=== PATIENT | male | born 1940 | race Caucasian/White ===

== ENCOUNTER 2016-10-31 07:32 | Emergency (ER) | payer MEDICARE, BC ==
[2016-10-31 07:45] VITALS: BP 134/66
[2016-10-31] MEDS ORDERED: Sodium Chloride 0.9% 10 ML Syringe FLUSH PRN (08:07)
--- NOTE | 2016-10-31 08:09 | EDM.PDOC ---
ED HPI GENERAL MEDICAL PROBLEM - General Chief Complaint: Genitourinary Problem Stated Complaint: [id number] PASSING BLOOD DIZZY Time Seen by Provider: 10/31/16 07:50 Source of Information: Reports: Patient History Limitations: Reports: No Limitations - History of Present Illness INITIAL COMMENTS - FREE TEXT/NARRATIVE: 76 yo male presents with c/o dizzy for the past few months and hematuria the past few days. States that the dizziness is intermittent. 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 Originally thought that blood in urine was due to "eating beets" but now it has continued and is bright red. Denies pain or lightheadedness. Onset: Unknown/Unsure Duration: Getting Worse Location: Reports: Head Improves with: Reports: None Worsens with: Reports: Movement Associated Symptoms: Reports: No Other Symptoms - Related Data Allergies Allergy/AdvReac Type Severity Reaction Status Date / Time Sulfa (Sulfonamide Allergy Cannot Verified 10/31/16 08:04 Antibiotics) Remember Home Meds: Home Meds Brimonidine/Timolol [Combigan 0.2%/0.5% Ophth Soln] 5 bottle .ROUTE DAILY [History] Chlorthalidone [Chlorthalidone] 25 mg PO DAILY 03/17/14 [History] Lisinopril [Prinivil] 20 mg PO DAILY 03/17/14 [History] Metoprolol Tartrate 25 mg PO BID 03/17/14 [History] Warfarin [Coumadin] 2 mg PO DAILY 03/17/14 [History] atorvaSTATin [Lipitor] 20 mg PO BEDTIME 03/17/14 [History] Aspirin 325 mg PO DAILY 08/01/15 [History] Digoxin [Digoxin] 125 mcg PO DAILY 10/31/16 [History] Furosemide [Furosemide] 20 mg PO DAILY 10/31/16 [History] Omeprazole [Omeprazole] 20 mg pe PO BID 10/31/16 [History] Potassium Chloride 20 meq PO DAILY 10/31/16 [History] Past Medical History HEENT History: Reports: Glaucoma Other HEENT History: eyelids done Cardiovascular History: Reports: Afib, CAD, High Cholesterol, Hypertension, [place], PVD, Stents Respiratory History: Reports: None Gastrointestinal History: Reports: None Genitourinary History: Reports: None Musculoskeletal History: Reports: Fracture Neurological History: Reports: None Psychiatric History: Reports: None Endocrine/Metabolic History: Reports: None Hematologic History: Reports: None Immunologic History: Reports: None Oncologic (Cancer) History: Reports: None Dermatologic History: Reports: None - Infectious Disease History Infectious Disease History: Reports: Measles - Past Surgical History Cardiovascular Surgical History: Reports: Coronary Artery Bypass Musculoskeletal Surgical History: Reports: Hip Replacement Oncologic Surgical History: Reports: None Social & Family History - Family History Family Medical History: Noncontributory - Tobacco Use Smoking Status *Q: Former Smoker Used Tobacco, but Quit: Yes Month Tobacco Last Used: 25 years ago Second Hand Smoke Exposure: No - Caffeine Use Caffeine Use: Reports: Soda - Alcohol Use Days Per Week of Alcohol Use: 4 Number of Drinks Per Day: 2 Total Drinks Per Week: 8 - Recreational Drug Use Recreational Drug Use: No - Living Situation & Occupation Living situation: Reports: Alone Occupation: Retired ED ROS GENERAL - Review of Systems Review Of Systems: See Below : Reports: Hematuria Neurological: Reports: Dizziness ED EXAM, NEURO - Physical Exam Exam: See Below Exam Limited By: No Limitations General Appearance: Alert, WD/WN, No Apparent Distress Eye Exam: Bilateral Eye: EOMI, Normal Inspection, PERRL Ears: Normal External Exam, Normal Canal, Hearing Grossly Normal, Normal TMs Nose: Normal Inspection, Normal Mucosa, No Blood Throat/Mouth: Normal Inspection, Normal Lips, Normal Teeth, Normal Gums, Normal Oropharynx, Normal Voice, No Airway Compromise Head Exam: Atraumatic, Normocephalic Neck: Normal Inspection, Supple, Non-Tender, Full Range of Motion Respiratory/Chest: No Respiratory Distress, Lungs Clear, Normal Breath Sounds, No Accessory Muscle Use, Chest Non-Tender Cardiovascular: Normal Peripheral Pulses, Regular Rate, Rhythm, No Edema, No Gallop, No JVD, No Murmur, No Rub GI/Abdominal: Normal Bowel Sounds, Soft, Non-Tender, No Organomegaly, No Distention, No Abnormal Bruit, No Mass, Other (Firm mass in RUQ due to defibrillator ) Neurological: Alert, Normal Mood/Affect, Normal Dorsiflexion, CN II-XII Intact, Normal Plantar Flexion, Normal Gait, No Motor/Sensory Deficits, Oriented x 3 Skin Exam: Warm, Dry, Intact, Normal Color, No Rash Course - Vital Signs Last Recorded V/S: Last Vital Signs Temp 97.2 F 10/31/16 07:41 Pulse 61 10/31/16 07:41 Resp 20 10/31/16 07:41 BP 134/66 10/31/16 07:41 Pulse Ox 98 10/31/16 07:41 - Orders/Labs/Meds Orders: Active Orders 24 hr Category Date Time Status EKG Documentation Completion [RC] STAT Care 10/31/16 08:07 Active CULTURE URINE [RM] Stat Lab 10/31/16 08:40 Received Sodium Chloride 0.9% [Saline Flush] Med 10/31/16 08:07 Active 10 ml FLUSH ASDIRECTED PRN Saline Lock Insert [OM.PC] Stat Oth 10/31/16 08:07 Ordered Medication Orders Sodium Chloride (Saline Flush) 10 ml FLUSH ASDIRECTED PRN PRN Reason: Keep Vein Open Last Admin: 10/31/16 10:34 Dose: 10 ml Labs: Laboratory Tests 10/31/16 10/31/16 10/31/16 Range/Units 08:20 08:20 08:20 WBC 9.6 (5.0-10.0) 10^3/uL RBC 4.54 L (4.6-6.2) 10^6/uL Hgb 15.5 (14.0-18.0) g/dL Hct 44.9 (40.0-54.0) % MCV 98.9 (80-100) fL MCH 34.1 H (27.0-34.0) pg MCHC 34.5 (33.0-35.0) g/dL Plt Count 165 (150-450) 10^3/uL Neut % (Auto) 73.9 (42.2-75.2) % Lymph % (Auto) 15.6 L (20.5-50.1) % [place] % (Auto) 9.8 H (2-8) % Eos % (Auto) 0.5 L (1.0-3.0) % Baso % (Auto) 0.2 (0.0-1.0) % PT 18.5 H (9.0-12.0) SEC INR 1.8 H (0.9-1.2) Sodium 133 L (135-145) mmol/L Potassium 4.1 (3.6-5.0) mmol/L Chloride 96 L (101-111) mmol/L Carbon Dioxide 26.0 (21.0-31.0) mmol/L Anion Gap 15.1 BUN 13 (7-18) mg/dL Creatinine 0.9 (0.6-1.3) mg/dL Est Cr Clr Drug Dosing 72.10 mL/min Estimated GFR (MDRD) > 60 Glucose 82 (74-105) mg/dL Calcium 8.9 (8.4-10.2) mg/dl Phosphorus 3.1 (2.5-4.6) mg/dL Magnesium 1.9 (1.8-2.5) mg/dL Creatine Kinase (26-174) IU/L Creatine Kinase Index (0-2.4) % CK-MB (CK-2) (0.4-4.7) ng/mL Troponin I < 0.02 (0.00-0.02) ng/ml Urine Color (YELLOW) Urine Appearance (CLEAR) Urine pH (5.0-9.0) Ur Specific [place] (1.005-1.030) Urine Protein (NEGATIVE) Urine Glucose (UA) (NEGATIVE) Urine Ketones (NEGATIVE) Urine Occult Blood (NEGATIVE) Urine Nitrite (NEGATIVE) Urine Bilirubin (NEGATIVE) Urine Urobilinogen (0.2-1.0) mg/dL Ur Leukocyte Esterase (NEGATIVE) Urine RBC /HPF Urine WBC (0-5/HPF) /HPF Ur Epithelial Cells /HPF Urine Bacteria (0-FEW/HPF) /HPF Urine Mucus /LPF 10/31/16 10/31/16 Range/Units 08:20 08:40 WBC (5.0-10.0) 10^3/uL RBC (4.6-6.2) 10^6/uL Hgb (14.0-18.0) g/dL Hct (40.0-54.0) % MCV (80-100) fL MCH (27.0-34.0) pg MCHC (33.0-35.0) g/dL Plt Count (150-450) 10^3/uL Neut % (Auto) (42.2-75.2) % Lymph % (Auto) (20.5-50.1) % [place] % (Auto) (2-8) % Eos % (Auto) (1.0-3.0) % Baso % (Auto) (0.0-1.0) % PT (9.0-12.0) SEC INR (0.9-1.2) Sodium (135-145) mmol/L Potassium (3.6-5.0) mmol/L Chloride (101-111) mmol/L Carbon Dioxide (21.0-31.0) mmol/L Anion Gap BUN (7-18) mg/dL Creatinine (0.6-1.3) mg/dL Est Cr Clr Drug Dosing mL/min Estimated GFR (MDRD) Glucose (74-105) mg/dL Calcium (8.4-10.2) mg/dl Phosphorus (2.5-4.6) mg/dL Magnesium (1.8-2.5) mg/dL Creatine Kinase 41 (26-174) IU/L Creatine Kinase Index 2.9 H (0-2.4) % CK-MB (CK-2) 1.20 (0.4-4.7) ng/mL Troponin I (0.00-0.02) ng/ml Urine Color Straw (YELLOW) Urine Appearance Turbid (CLEAR) Urine pH 5.5 (5.0-9.0) Ur Specific [place] 1.020 (1.005-1.030) Urine Protein 30 H (NEGATIVE) Urine Glucose (UA) Negative (NEGATIVE) Urine Ketones 40 H (NEGATIVE) Urine Occult Blood Moderate H (NEGATIVE) Urine Nitrite Positive H (NEGATIVE) Urine Bilirubin Small H (NEGATIVE) Urine Urobilinogen 4.0 H (0.2-1.0) mg/dL Ur Leukocyte Esterase Moderate H (NEGATIVE) Urine RBC Semi-packed H /HPF Urine WBC Semi-packed H (0-5/HPF) /HPF Ur Epithelial Cells Few /HPF Urine Bacteria Many H (0-FEW/HPF) /HPF Urine Mucus Few H /LPF Meds: Medications Generic Name Dose Route Start Last Admin Trade Name Freq PRN Reason Stop Dose Admin Sodium Chloride 10 ml 10/31/16 08:07 10/31/16 10:34 Saline Flush FLUSH 10 ml ASDIRECTED PRN Administration Keep Vein Open Discontinued Medications Generic Name Dose Route Start Last Admin Trade Name Freq PRN Reason Stop Dose Admin Ceftriaxone Sodium 1 gm/ 50 mls @ 100 mls/hr 10/31/16 09:38 10/31/16 10:35 Sodium Chloride IV 10/31/16 10:07 100 mls/hr ONETIME ONE Administration - Re-Assessments/Exams Free Text/Narrative Re-Assessment/Exam: 10/31/16 09:57 Called [facility] and EKG sent to Dr. Juarez who reviewed and states that EKG is normal. Does not feel that pacer is malfunctioning. Will have patient follow up with migratory game bird biologist this week. Departure - Departure Time of Disposition: 11:02 Disposition: Home, Self-Care 01 Condition: Good Clinical Impression: UTI, Urinary tract infectious disease, Dizziness of unknown cause - Discharge Information Instructions: Urinary Tract Infection, Adult, [id number], Dizziness, Easy-to- Read Forms: ED Department Discharge Additional Instructions: Make sure to follow up with Dr. Garay in 2-3 days to have your coumadin levels rechecked and results of urine. Take the antibiotic for 10 days. Return for any worsening symptoms or fever. Drink plenty of fluids( water/cranberry juice) the next few days to help flush the bladder. Care Plan Goals: Cipro # 20 - My Orders Last 24 Hours: My Active Orders 10/31/16 08:07 EKG Documentation Completion [RC] STAT Sodium Chloride 0.9% [Saline Flush] 10 ml FLUSH ASDIRECTED PRN Saline Lock Insert [OM.PC] Stat 10/31/16 08:40 CULTURE URINE [RM] Stat - Assessment/Plan Last 24 Hours: My Active Orders 10/31/16 08:07 EKG Documentation Completion [RC] STAT Sodium Chloride 0.9% [Saline Flush] 10 ml FLUSH ASDIRECTED PRN Saline Lock Insert [OM.PC] Stat 10/31/16 08:40 CULTURE URINE [RM] Stat
[2016-10-31 08:47] LABS: CHLORIDE,CL 96 mmol/L (101-111); SODIUM,NA 133 mmol/L (135-145)
[2016-10-31] MEDS ORDERED: cefTRIAXone 1 GM in Sodium Chloride 0.9% 50 ML IV ONE (09:38)
--- NOTE | 2016-11-01 15:01 | EKG ---
10/31/2016- ALEK OLIVEIRA - EKG, per my reading, shows narrow complex rhythm with pacer spikes at unusual location. [facility] /[id number]
== END 2016-10-31 11:45 | disposition home or self-care (01) ==
LOC: DL.ED 07:32
DX: N39.0 Urinary tract infection, site not specified (principal); I48.91 Unspecified atrial fibrillation; I25.10 Atherosclerotic heart disease of native coronary artery without angina pectoris; E78.00 Pure hypercholesterolemia, unspecified; I10 Essential (primary) hypertension; I25.2 Old myocardial infarction; Z95.1 Presence of aortocoronary bypass graft; Z87.891 Personal history of nicotine dependence; Z96.649 Presence of unspecified artificial hip joint; Z88.2 Allergy status to sulfonamides; Z79.899 Other long term (current) drug therapy; Z79.82 Long term (current) use of aspirin
CPT/HCPCS: 36415; 70450; 71010; 80048; 81001; 82550; 82553; 83735; 84100; 84484; 85025; 85610; 87086; 93005; 93010; 96365; 99284; J0696; J7050; 87088; 87186

== ENCOUNTER 2017-04-06 09:37 | Inpatient (IN) | payer MEDICARE, BC ==
--- NOTE | 2017-04-06 09:56 | EDM.PDOC ---
ED HPI GENERAL MEDICAL PROBLEM - General Chief Complaint: Gastrointestinal Problem Stated Complaint: NOT EATING, GENERALIZED WEAKNESS Time Seen by Provider: 04/06/17 09:56 Source of Information: Reports: Patient, Family, Old Records, RN, RN Notes Reviewed History Limitations: Reports: No Limitations - History of Present Illness INITIAL COMMENTS - FREE TEXT/NARRATIVE: Arrives from home by POV with c/o no appetite, 40+ lb unintended wt loss over the past 12 months. Pt states he is fatigued, weak, and food has no taste or appeal to him. He denies pain, N/V/D/C, urinary Sx's, cough, shortness of breath , or edema. He lives alone, and his family checks on him daily. The family recently got pt set up to receive 'meals on wheels' thinking that he was too tired and weak to cook for himself, but even with the delivered meals he eats very little. Pt states that he began loosing his appetite about 1 year ago, and for the last one month has worsened and has become very weak. Denies falls or injury. Onset: Gradual Duration: Constant, Getting Worse Location: Reports: Generalized Quality: Reports: Other (denies pain) Severity: Severe Improves with: Reports: None Worsens with: Reports: None Associated Symptoms: Reports: No Other Symptoms Bilateral Abdomen Pain Score (Numeric/FACES): 1 - Related Data Allergies Allergy/AdvReac Type Severity Reaction Status Date / Time Sulfa (Sulfonamide Allergy Cannot Verified 04/06/17 09:42 Antibiotics) Remember Home Meds: Home Meds Brimonidine/Timolol [Combigan 0.2%/0.5% Oph Soln] 5 bottle .ROUTE DAILY [History] Chlorthalidone [Chlorthalidone] 25 mg PO DAILY 03/17/14 [History] Lisinopril [Prinivil] 20 mg PO DAILY 03/17/14 [History] Metoprolol Tartrate 25 mg PO BID 03/17/14 [History] Warfarin [Coumadin] 2 mg PO DAILY 03/17/14 [History] atorvaSTATin [Lipitor] 20 mg PO BEDTIME 03/17/14 [History] Aspirin 325 mg PO DAILY 08/01/15 [History] Digoxin [Digoxin] 125 mcg PO DAILY 10/31/16 [History] Furosemide [Furosemide] 20 mg PO DAILY 10/31/16 [History] Omeprazole [Omeprazole] 20 mg pe PO BID 10/31/16 [History] Potassium Chloride 20 meq PO DAILY 10/31/16 [History] Past Medical History HEENT History: Reports: Glaucoma Other HEENT History: eyelids done Cardiovascular History: Reports: Afib, CAD, High Cholesterol, Hypertension, [place], PVD, Stents Respiratory History: Reports: None Gastrointestinal History: Reports: None Genitourinary History: Reports: None Musculoskeletal History: Reports: Fracture Neurological History: Reports: None Psychiatric History: Reports: None Endocrine/Metabolic History: Reports: None Hematologic History: Reports: None Immunologic History: Reports: None Oncologic (Cancer) History: Reports: None Dermatologic History: Reports: None - Infectious Disease History Infectious Disease History: Reports: Measles - Past Surgical History Cardiovascular Surgical History: Reports: Coronary Artery Bypass Musculoskeletal Surgical History: Reports: Hip Replacement Oncologic Surgical History: Reports: None Social & Family History - Family History Family Medical History: Noncontributory - Tobacco Use Smoking Status *Q: Former Smoker Used Tobacco, but Quit: Yes Month Tobacco Last Used: 25 years ago Second Hand Smoke Exposure: No - Caffeine Use Caffeine Use: Reports: Soda - Alcohol Use Days Per Week of Alcohol Use: 4 Number of Drinks Per Day: 2 Total Drinks Per Week: 8 - Recreational Drug Use Recreational Drug Use: No - Living Situation & Occupation Living situation: Reports: Alone Occupation: Retired ED ROS GENERAL - Review of Systems Review Of Systems: ROS reveals no pertinent complaints other than HPI. ED EXAM, GI/ABD - Physical Exam Exam: See Below Exam Limited By: No Limitations General Appearance: Alert, No Apparent Distress, Thin, Other (frail, elderly, poorly kept, chronically appearing male) Nose: Normal Inspection Throat/Mouth: Normal Lips, Normal Oropharynx, Normal Voice, No Airway Compromise , Other (dry oral membranes) Head: Atraumatic, Normocephalic Neck: Normal Inspection, Supple, Non-Tender, Full Range of Motion. No: Lymphadenopathy (L), Lymphadenopathy (R) Respiratory/Chest: No Respiratory Distress, Lungs Clear, No Accessory Muscle Use , Chest Non-Tender, Decreased Breath Sounds Cardiovascular: Regular Rate, Rhythm, No Edema, No JVD GI/Abdominal Exam: Soft, Non-Tender, No Distention, No Abnormal Bruit, Pelvis Stable, Abnormal Bowel Sounds (hypoactive), Other (LUQ I.C.D. palpable). No: Guarding, Rigid, Rebound (Male) Exam: Deferred Rectal (Males) Exam: Deferred Back Exam: Normal Inspection. No: CVA Tenderness (L), CVA Tenderness (R) Extremities: Normal Range of Motion, Non-Tender, No Pedal Edema, Normal Capillary Refill, Other (very thin lower extremities with generalized muscle wasting) Neurological: Alert, Oriented, Normal Cognition, No Motor/Sensory Deficits, Other (generalized weakness) Psychiatric: Normal Affect, Normal Mood Skin Exam: Warm, Dry, Intact, Normal Color, No Rash Course - Vital Signs Last Recorded V/S: Last Vital Signs Temp 36.6 C 04/06/17 09:46 Pulse 66 04/06/17 09:46 Resp 14 04/06/17 09:46 BP 116/62 04/06/17 09:46 Pulse Ox 95 04/06/17 09:46 - Orders/Labs/Meds Orders: Active Orders 24 hr Category Date Time Status Peripheral IV Care [RC] . DIRECTED Care 04/06/17 10:07 Active Sodium Chloride 0.9% [Saline Flush] Med 04/06/17 10:07 Active 10 ml FLUSH ASDIRECTED PRN Peripheral IV Insertion Adult [OM.PC] Stat Oth 04/06/17 10:06 Ordered Medication Orders Sodium Chloride (Saline Flush) 10 ml FLUSH ASDIRECTED PRN PRN Reason: Keep Vein Open Last Admin: 04/06/17 10:15 Dose: 10 ml Labs: Laboratory Tests 04/06/17 04/06/17 04/06/17 Range/Units 10:12 10:12 10:12 WBC 13.7 H (5.0-10.0) 10^3/uL RBC 3.89 L (4.6-6.2) 10^6/uL Hgb 11.4 L D (14.0-18.0) g/dL Hct 35.2 L (40.0-54.0) % MCV 90.5 D (80-100) fL MCH 29.3 (27.0-34.0) pg MCHC 32.4 L (33.0-35.0) g/dL Plt Count 279 D (150-450) 10^3/uL Neut % (Auto) 76.3 H (42.2-75.2) % Lymph % (Auto) 12.3 L (20.5-50.1) % [place] % (Auto) 11.2 H (2-8) % Eos % (Auto) 0.1 L (1.0-3.0) % Baso % (Auto) 0.1 (0.0-1.0) % Add Manual Diff Yes Neutrophils % (Manual) 74 (42-75) % Band Neutrophils % 4 % Lymphocytes % (Manual) 12 L (20-50) % Monocytes % (Manual) 9 H (2-8) % Eosinophils % (Manual) 1 (1-3) % PT 26.9 H D (9.0-12.0) SEC INR 2.7 H (0.9-1.2) Sodium 132 L (135-145) mmol/L Potassium 3.7 (3.6-5.0) mmol/L Chloride 96 L (101-111) mmol/L Carbon Dioxide 27.0 (21.0-31.0) mmol/L Anion Gap 12.7 BUN 16 (7-18) mg/dL Creatinine 0.8 (0.6-1.3) mg/dL Est Cr Clr Drug Dosing 75.60 mL/min Estimated GFR (MDRD) > 60 BUN/Creatinine Ratio 20.00 Glucose 99 (74-105) mg/dL Calcium 8.4 (8.4-10.2) mg/dl Magnesium 1.6 L (1.8-2.5) mg/dL Total Bilirubin 1.3 H (0.2-1.0) mg/dL AST 45 H (10-42) IU/L ALT 19 (10-60) IU/L Alkaline Phosphatase 518 H (42-121) IU/L Lactate Dehydrogenase 399 H (91-180) IU/L Total Protein 6.8 (6.7-8.2) g/dl Albumin 2.5 L (3.2-5.5) g/dl Globulin 4.3 Albumin/Globulin Ratio 0.58 Amylase 37 (28-100) U/L Lipase 24 (22-51) U/L TSH, Ultra Sensitive (0.45-5.33) uIu/mL Urine Color (YELLOW) Urine Appearance (CLEAR) Urine pH (5.0-9.0) Ur Specific [place] (1.005-1.030) Urine Protein (NEGATIVE) Urine Glucose (UA) (NEGATIVE) Urine Ketones (NEGATIVE) Urine Occult Blood (NEGATIVE) Urine Nitrite (NEGATIVE) Urine Bilirubin (NEGATIVE) Urine Urobilinogen (0.2-1.0) mg/dL Ur Leukocyte Esterase (NEGATIVE) Urine RBC /HPF Urine WBC (0-5/HPF) /HPF Ur Epithelial Cells /HPF Amorphous Sediment (0/HPF) /HPF Urine Bacteria (0-FEW/HPF) /HPF Urine Mucus /LPF Digoxin (0-2.5) ng/ml 04/06/17 04/06/17 04/06/17 Range/Units 10:12 10:12 10:14 WBC (5.0-10.0) 10^3/uL RBC (4.6-6.2) 10^6/uL Hgb (14.0-18.0) g/dL Hct (40.0-54.0) % MCV (80-100) fL MCH (27.0-34.0) pg MCHC (33.0-35.0) g/dL Plt Count (150-450) 10^3/uL Neut % (Auto) (42.2-75.2) % Lymph % (Auto) (20.5-50.1) % [place] % (Auto) (2-8) % Eos % (Auto) (1.0-3.0) % Baso % (Auto) (0.0-1.0) % Add Manual Diff Neutrophils % (Manual) (42-75) % Band Neutrophils % % Lymphocytes % (Manual) (20-50) % Monocytes % (Manual) (2-8) % Eosinophils % (Manual) (1-3) % PT (9.0-12.0) SEC INR (0.9-1.2) Sodium (135-145) mmol/L Potassium (3.6-5.0) mmol/L Chloride (101-111) mmol/L Carbon Dioxide (21.0-31.0) mmol/L Anion Gap BUN (7-18) mg/dL Creatinine (0.6-1.3) mg/dL Est Cr Clr Drug Dosing mL/min Estimated GFR (MDRD) BUN/Creatinine Ratio Glucose (74-105) mg/dL Calcium (8.4-10.2) mg/dl Magnesium (1.8-2.5) mg/dL Total Bilirubin (0.2-1.0) mg/dL AST (10-42) IU/L ALT (10-60) IU/L Alkaline Phosphatase (42-121) IU/L Lactate Dehydrogenase (91-180) IU/L Total Protein (6.7-8.2) g/dl Albumin (3.2-5.5) g/dl Globulin Albumin/Globulin Ratio Amylase (28-100) U/L Lipase (22-51) U/L TSH, Ultra Sensitive 5.83 H (0.45-5.33) uIu/mL Urine Color Yellow (YELLOW) Urine Appearance Clear (CLEAR) Urine pH 5.5 (5.0-9.0) Ur Specific [place] 1.025 (1.005-1.030) Urine Protein 30 H (NEGATIVE) Urine Glucose (UA) Negative (NEGATIVE) Urine Ketones Negative (NEGATIVE) Urine Occult Blood Trace-lysed H (NEGATIVE) Urine Nitrite Negative (NEGATIVE) Urine Bilirubin Moderate H (NEGATIVE) Urine Urobilinogen 2.0 H (0.2-1.0) mg/dL Ur Leukocyte Esterase Negative (NEGATIVE) Urine RBC 0-5 /HPF Urine WBC 0-5 (0-5/HPF) /HPF Ur Epithelial Cells Many H /HPF Amorphous Sediment Many (0/HPF) /HPF Urine Bacteria Many H (0-FEW/HPF) /HPF Urine Mucus Many H /LPF Digoxin 0.4 (0-2.5) ng/ml Meds: Medications Generic Name Dose Route Start Last Admin Trade Name Freq PRN Reason Stop Dose Admin Sodium Chloride 10 ml 04/06/17 10:07 04/06/17 10:15 Saline Flush FLUSH 10 ml ASDIRECTED PRN Administration Keep Vein Open Discontinued Medications Generic Name Dose Route Start Last Admin Trade Name Freq PRN Reason Stop Dose Admin Sodium Chloride 1,000 mls @ 999 mls/hr 04/06/17 10:46 04/06/17 10:50 Normal Saline IV 04/06/17 11:46 999 mls/hr .BOLUS ONE Administration Iopamidol 100 ml 04/06/17 12:43 04/06/17 12:53 Isovue-300 (61%) IVPUSH 04/06/17 12:44 100 ml ONETIME ONE Administration - Radiology Interpretation Free Text/Narrative:: CT C/A/P: left thyroid calcification 11mm, small B/L pleural effusions, aortoiliac stent graft, no endo leak, diverticulosis, Rt renal cyst, cholelithiasis, prostatic hypertrophy w/chronic calcific prostatitis per Rad. report. CT Results Date: 04/06/17 Departure - Departure Time of Disposition: 13:07 (admit to Dr. Jacob) Disposition: Admitted As Inpatient 66 Condition: Poor Clinical Impression: Dehydration, Cachexia, Generalized weakness, Pleural effusion Leukocytosis, unspecified Qualifiers: Leukocytosis type: unspecified Qualified Code(s): D72.829 - Elevated white blood cell count, unspecified - Discharge Information Forms: ED Department Discharge - My Orders Last 24 Hours: My Active Orders 04/06/17 10:06 Peripheral IV Insertion Adult [OM.PC] Stat 04/06/17 10:07 Peripheral IV Care [RC] . DIRECTED Sodium Chloride 0.9% [Saline Flush] 10 ml FLUSH ASDIRECTED PRN - Assessment/Plan Last 24 Hours: My Active Orders 04/06/17 10:06 Peripheral IV Insertion Adult [OM.PC] Stat 04/06/17 10:07 Peripheral IV Care [RC] . DIRECTED Sodium Chloride 0.9% [Saline Flush] 10 ml FLUSH ASDIRECTED PRN
[2017-04-06] MEDS ORDERED: Sodium Chloride 0.9% 10 ML Syringe FLUSH PRN (10:07)
[2017-04-06 10:39] LABS: ANION GAP 12.7; CHLORIDE,CL 96 mmol/L (101-111); SODIUM,NA 132 mmol/L (135-145)
[2017-04-06] MEDS ORDERED: Sodium Chloride 0.9% 1,000 ML IV ONE (10:46)
[2017-04-06] MEDS ORDERED: Iopamidol 612 MG/ML 100 ML Bottle IVPUSH ONE (12:43)
[2017-04-06] MEDS ORDERED: Zolpidem 5 MG Tab PO PRN (14:48)
[2017-04-06] MEDS ORDERED: Acetaminophen 325 MG Tab PO PRN (14:48)
--- NOTE | 2017-04-06 14:52 | PCM.HP ---
H&P History of Present Illness - General Date of Service: 04/06/17 Admit Problem/Dx: Admission Diagnosis/Problem Admission Diagnosis/Problem Weakness Source of Information: Patient - History of Present Illness Initial Comments - Free Text/Narative: The patient is a 76-year-old gentleman who presented with weakness, poor appetite, about 40 pounds weight loss. Symptoms started about a year ago. In the meantime the patient has been followed by Dr. Garay the clinic. 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 At this point the patient opted for no further workup. The patient has been living alone, but has been increasingly weak. Has had Meals on Wheels arranged. Came into the emergency room, it was felt that the patient is too weak to return home alone. Bilateral Abdomen Pain Score (Numeric/FACES): 1 - Related Data Allergies/Adverse Reactions: Allergies Allergy/AdvReac Type Severity Reaction Status Date / Time Sulfa (Sulfonamide Allergy Cannot Verified 04/06/17 14:41 Antibiotics) Remember Home Medications: Home Meds Metoprolol Tartrate 25 mg PO BID 03/17/14 [History] atorvaSTATin [Lipitor] 20 mg PO BEDTIME 03/17/14 [History] Aspirin 325 mg PO DAILY 08/01/15 [History] Digoxin [Digoxin] 125 mcg PO DAILY 10/31/16 [History] Furosemide [Furosemide] 20 mg PO DAILY 10/31/16 [History] Omeprazole [Omeprazole] 20 mg pe PO DAILY 10/31/16 [History] Potassium Chloride 20 meq PO DAILY 10/31/16 [History] Amiodarone [Cordarone] 200 mg PO DAILY 04/06/17 [History] Latanoprost [Xalatan 0.005% Ophth Soln] 1 drop EYEBOTH BEDTIME 04/06/17 [History ] Warfarin Sodium [Jantoven] 2 mg PO ASDIRECTED 04/06/17 [History] Past Medical History HEENT History: Reports: Glaucoma Other HEENT History: eyelids done Cardiovascular History: Reports: Afib, CAD, High Cholesterol, Hypertension, PR, PVD, Stents Respiratory History: Reports: None Gastrointestinal History: Reports: None Genitourinary History: Reports: Urinary Incontinence Musculoskeletal History: Reports: Fracture Neurological History: Reports: None Psychiatric History: Reports: None Endocrine/Metabolic History: Reports: None Hematologic History: Reports: None Immunologic History: Reports: None Oncologic (Cancer) History: Reports: None Dermatologic History: Reports: None - Infectious Disease History Infectious Disease History: Reports: Measles - Past Surgical History Cardiovascular Surgical History: Reports: Coronary Artery Bypass, Pacer Musculoskeletal Surgical History: Reports: Hip Replacement Oncologic Surgical History: Reports: None Social & Family History - Family History Family Medical History: Noncontributory - Tobacco Use Smoking Status *Q: Former Smoker Used Tobacco, but Quit: Yes Month Tobacco Last Used: 25 years ago Second Hand Smoke Exposure: No - Caffeine Use Caffeine Use: Reports: Soda - Alcohol Use Days Per Week of Alcohol Use: 4 Number of Drinks Per Day: 2 Total Drinks Per Week: 8 - Recreational Drug Use Recreational Drug Use: No - Living Situation & Occupation Living situation: Reports: Alone Occupation: Retired H&P Review of Systems - Review of Systems: Review Of Systems: See Below General: Denies: Fever, Chills Pulmonary: Denies: Shortness of Breath Cardiovascular: Denies: Chest Pain Gastrointestinal: Reports: Anorexia. Denies: Abdominal Pain, Constipation, Diarrhea Genitourinary: Denies: Dysuria Musculoskeletal: Reports: Back Pain (Occasional, chronic) Psychiatric: Denies: Confusion Neurological: Reports: Dizziness. Denies: Headache, Syncope Exam - Exam Exam: See Below - Vital Signs Vital Signs: Last Vital Signs Temp 37.2 C 04/06/17 13:51 Pulse 63 04/06/17 13:51 Resp 20 04/06/17 13:51 BP 114/56 L 04/06/17 13:51 Pulse Ox 99 04/06/17 13:51 Weight: 66.587 kg - Exam General: Alert, Oriented Neck: Supple Lungs: Clear to Auscultation, Normal Respiratory Effort Cardiovascular: Regular Rate, Regular Rhythm, Systolic Murmur GI/Abdominal Exam: Normal Bowel Sounds, Soft, Non-Tender Extremities: No Pedal Edema - Patient Data Result Diagrams: 04/06/17 10:12 04/06/17 10:12 *Q Meaningful Use (ADM) - VTE *Q VTE Criteria *Q: - Stroke *Q Stroke Criteria *Q: - AMI *Q AMI Criteria *Q: - Problem List (1) Atrial fibrillation SNOMED Code(s): 80457791 ICD Code: I48.91 - UNSPECIFIED ATRIAL FIBRILLATION Status: Acute Current Visit: Yes (2) Cachexia SNOMED Code(s): 628445991 ICD Code: R64 - CACHEXIA Status: Acute Current Visit: Yes (3) Generalized weakness SNOMED Code(s): 52608106 ICD Code: R53.1 - WEAKNESS Status: Acute Current Visit: Yes (4) Leukocytosis, unspecified SNOMED Code(s): 852605973 ICD Code: D72.829 - ELEVATED WHITE BLOOD CELL COUNT, UNSPECIFIED Status: Acute Current Visit: Yes Qualifiers: Leukocytosis type: unspecified Qualified Code(s): D72.829 - Elevated white blood cell count, unspecified (5) Anticoagulant therapy SNOMED Code(s): 192514854 ICD Code: 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 Status: Acute Current Visit: No (6) HTN, Essential hypertension SNOMED Code(s): 80078221 ICD Code: I10 - ESSENTIAL (PRIMARY) HYPERTENSION Status: Chronic Current Visit: No Problem List Initiated/Reviewed/Updated: Yes Orders Last 24hrs: Active Orders 24 hr Category Date Time Status Patient Status [ADT] Routine ADT 04/06/17 14:48 Ordered Antiembolic Devices [RC] PER UNIT ROUTINE Care 04/06/17 14:50 Ordered Oxygen Therapy [RC] PRN Care 04/06/17 14:48 Ordered Up With Assistance [RC] ASDIRECTED Care 04/06/17 14:48 Ordered VTE/DVT Education [RC] PER UNIT ROUTINE Care 04/06/17 14:48 Ordered Vital Signs [RC] Q4H Care 04/06/17 14:48 Ordered OT Evaluation and Treatment [CONS] Routine Cons 04/06/17 14:50 Ordered PT Evaluation and Treatment [CONS] Routine Cons 04/06/17 14:51 Ordered Regular Diet [DIET] Diet 04/06/17 Dinner Ordered BASIC METABOLIC PANEL,BMP [CHEM] AM Lab 04/07/17 05:11 Ordered CBC WITH AUTO DIFF [HEME] AM Lab 04/07/17 05:11 Ordered PSA-EIA [REF] Routine Lab 04/06/17 14:51 Ordered Acetaminophen [Tylenol] Med 04/06/17 14:48 Ordered 650 mg PO Q4H PRN Levothyroxine Med 04/07/17 06:00 Ordered 25 mcg PO ACBREAKFAST Zolpidem [Ambien] Med 04/06/17 14:48 Ordered 5 mg PO BEDTIME PRN Antiembolic Hose [OM.PC] Per Unit Routine Oth 04/06/17 14:49 Ordered Resuscitation Status Routine Resus Stat 04/06/17 14:48 Ordered Medication Orders Acetaminophen (Tylenol) 650 mg PO Q4H PRN PRN Reason: Pain (Mild 1-3)/fever Levothyroxine Sodium (Levothyroxine) 25 mcg PO ACBREAKFAST MIL Sodium Chloride (Saline Flush) 10 ml FLUSH ASDIRECTED PRN PRN Reason: Keep Vein Open Last Admin: 04/06/17 10:15 Dose: 10 ml Zolpidem Tartrate (Ambien) 5 mg PO BEDTIME PRN PRN Reason: Sleep Assessment/Plan Comment:: Weakness Likely due to weight loss, possibly due to metastatic cancer Hold Lasix Will have physical and occupational therapy evaluation Leukocytosis UA is not compatible with urinary tract infection Will monitor, for now hold antibiotics Has a history of "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 Garay The patient was set up to follow-up with Oncology Dr. Anaya, bone biopsy was discussed but the patient declined further evaluations. I will check PSA level Elevated TSH likely hypothyroidism Start Synthroid Atrial fibrillation Continue metoprolol, digoxin, amiodarone for rate control Anticoagulation for atrial fibrillation. Coumadin will be continued Hyponatremia Mild, will follow with diet Hypertension Treat with metoprolol Coronary artery disease Treat with aspirin, metoprolol, Lipitor DVT prophylaxis with full dose anticoagulation with Coumadin
[2017-04-06] MEDS: Latanoprost 0.005% Ophth Soln 2.5 ML Bottle EYEBOTH SCH (23:15)
[2017-04-06] MEDS: atorvaSTATin 20 MG Tab PO SCH (23:16)
[2017-04-06] MEDS: Metoprolol Tartrate 25 MG Tab PO SCH (23:17)
[2017-04-07] MEDS: Omeprazole 20 MG Cap.CR PO SCH (06:30)
[2017-04-07] MEDS: Levothyroxine 25 MCG Tab PO SCH (06:30)
[2017-04-07 07:01] LABS: ANION GAP 9.1; CHLORIDE,CL 99 mmol/L (101-111); SODIUM,NA 128 mmol/L (135-145)
[2017-04-07] MEDS: Digoxin 125 MCG Tab PO SCH (08:19)
[2017-04-07] MEDS: Amiodarone 200 MG Tab PO SCH (08:19)
[2017-04-07] MEDS: Aspirin 325 MG Tab PO SCH (08:20)
[2017-04-07] MEDS: Metoprolol Tartrate 25 MG Tab PO SCH ×2 (08:20→22:13)
[2017-04-07] MEDS ORDERED: Lactulose Soln 10 GM/15 ML 30 ML UD Cup PO PRN (12:44)
--- NOTE | 2017-04-07 12:55 | PCM.PN ---
- General Info Date of Service: 04/07/17 Admission Dx/Problem (Free Text): Admission Diagnosis/Problem Admission Diagnosis/Problem Weakness, weight loss Subjective Update: Feeling stronger. Eating better. No complains of back pain. He has been using very little salt in his diet. No cough, no shortness of breath, no chest pain, no fever or chills. Functional Status: Reports: Pain Controlled - Review of Systems General: Denies: Fever Pulmonary: Denies: Shortness of Breath Cardiovascular: Denies: Chest Pain Gastrointestinal: Denies: Abdominal Pain - Patient Data Vitals - Most Recent: Last Vital Signs Temp 36.8 C 04/07/17 11:52 Pulse 70 04/07/17 11:52 Resp 20 04/07/17 11:52 BP 104/56 L 04/07/17 11:52 Pulse Ox 95 04/07/17 11:52 Weight - Most Recent: 66.587 kg I&O - Last 24 Hours: Intake & Output 04/06/17 04/07/17 04/07/17 22:59 06:59 14:59 Intake Total 400 225 Output Total 500 500 Balance 400 -275 -500 Lab Results Last 24 Hours: Laboratory Results - last 24 hr 04/07/17 04/07/17 04/07/17 Range/Units 05:57 05:57 05:57 WBC 11.0 H (5.0-10.0) 10^3/uL RBC 3.36 L (4.6-6.2) 10^6/uL Hgb 9.9 L D (14.0-18.0) g/dL Hct 30.5 L (40.0-54.0) % MCV 90.8 (80-100) fL MCH 29.5 (27.0-34.0) pg MCHC 32.5 L (33.0-35.0) g/dL Plt Count 278 (150-450) 10^3/uL Neut % (Auto) 71.9 (42.2-75.2) % Lymph % (Auto) 16.8 L (20.5-50.1) % [place] % (Auto) 11.0 H (2-8) % Eos % (Auto) 0.2 L (1.0-3.0) % Baso % (Auto) 0.1 (0.0-1.0) % PT 23.6 H (9.0-12.0) SEC INR 2.3 H (0.9-1.2) Sodium 128 L (135-145) mmol/L Potassium 3.1 L (3.6-5.0) mmol/L Chloride 99 L (101-111) mmol/L Carbon Dioxide 23.0 (21.0-31.0) mmol/L Anion Gap 9.1 BUN 16 (7-18) mg/dL Creatinine 0.6 (0.6-1.3) mg/dL Est Cr Clr Drug Dosing 98.65 mL/min Estimated GFR (MDRD) > 60 Glucose 83 (74-105) mg/dL Calcium 7.7 L (8.4-10.2) mg/dl Med Orders - Current: Current Medications Acetaminophen (Tylenol) 650 mg PO Q4H PRN PRN Reason: Pain (Mild 1-3)/fever Amiodarone HCl (Cordarone) 200 mg PO DAILY [facility] Last Admin: 04/07/17 08:19 Dose: 200 mg Aspirin (Aspirin) 325 mg PO DAILY [facility] Last Admin: 04/07/17 08:20 Dose: 325 mg Atorvastatin Calcium (Lipitor) 20 mg PO BEDTIME [facility] Last Admin: 04/06/17 23:16 Dose: 20 mg Digoxin (Lanoxin) 125 mcg PO DAILY [facility] Last Admin: 04/07/17 08:19 Dose: 125 mcg Lactulose (Cephulac) 20 gm PO Q4H PRN PRN Reason: Constipation Latanoprost (Xalatan 0.005% Ophth Soln) 0 ml EYEBOTH BEDTIME [facility] Last Admin: 04/06/17 23:15 Dose: 1 drop Levothyroxine Sodium (Levothyroxine) 25 mcg PO ACBREAKFAST [facility] Last Admin: 04/07/17 06:30 Dose: 25 mcg Metoprolol Tartrate (Lopressor) 25 mg PO BID [facility] Last Admin: 04/07/17 08:20 Dose: 25 mg Omeprazole (Omeprazole) 20 mg PO ACBRK [facility] Last Admin: 04/07/17 06:30 Dose: 20 mg Potassium Chloride (Klor-Con 10) 20 meq PO TIDMEALS [facility] Stop: 04/08/17 12:01 Senna/Docusate Sodium (Senna Plus) 1 tab PO BID [facility] Sodium Chloride (Saline Flush) 10 ml FLUSH ASDIRECTED PRN PRN Reason: Keep Vein Open Last Admin: 04/06/17 10:15 Dose: 10 ml Sodium Chloride (Sodium Chloride) 1 gm PO TID [facility] Warfarin Sodium (Pharmacy To Dose - Warfarin) 1 dose .XX ASDIRECTED MIL Warfarin Sodium (Coumadin) 1 mg PO ONETIME ONE Stop: 04/07/17 14:01 Zolpidem Tartrate (Ambien) 5 mg PO BEDTIME PRN PRN Reason: Sleep Discontinued Medications Sodium Chloride (Normal Saline) 1,000 mls @ 999 mls/hr IV .BOLUS ONE Stop: 04/06/17 11:46 Last Admin: 04/06/17 10:50 Dose: 999 mls/hr Iopamidol (Isovue-300 (61%)) 100 ml IVPUSH ONETIME ONE Stop: 04/06/17 12:44 Last Admin: 04/06/17 12:53 Dose: 100 ml Warfarin Sodium (Coumadin) 1 mg PO ONETIME ONE Stop: 04/06/17 15:31 Last Admin: 04/06/17 16:28 Dose: 1 mg - Exam General: Alert, Oriented Neck: Supple Lungs: Clear to Auscultation, Normal Respiratory Effort Cardiovascular: Regular Rate, Regular Rhythm Extremities: No Pedal Edema - Problem List & Annotations (1) Atrial fibrillation SNOMED Code(s): 09352011 Code(s): I48.91 - UNSPECIFIED ATRIAL FIBRILLATION Status: Acute Current Visit: Yes (2) Cachexia SNOMED Code(s): 125740463 Code(s): R64 - CACHEXIA Status: Acute Current Visit: Yes (3) Generalized weakness SNOMED Code(s): 22644736 Code(s): R53.1 - WEAKNESS Status: Acute Current Visit: Yes (4) Leukocytosis, unspecified SNOMED Code(s): 973537146 Code(s): D72.829 - ELEVATED WHITE BLOOD CELL COUNT, UNSPECIFIED Status: Acute Current Visit: Yes Qualifiers: Leukocytosis type: unspecified Qualified Code(s): D72.829 - Elevated white blood cell count, unspecified (5) Anticoagulant therapy SNOMED Code(s): 724245692 Code(s): 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 Status: Acute Current Visit: No (6) HTN, Essential hypertension SNOMED Code(s): 62246950 Code(s): I10 - ESSENTIAL (PRIMARY) HYPERTENSION Status: Chronic Current Visit: No (7) Hyponatremia SNOMED Code(s): 41800030 Code(s): E87.1 - HYPO-OSMOLALITY AND HYPONATREMIA Status: Acute Current Visit: Yes - Problem List Review Problem List Initiated/Reviewed/Updated: Yes - My Orders Last 24 Hours: My Active Orders 04/06/17 14:17 PSA-EIA [REF] Routine 04/06/17 14:50 OT Evaluation and Treatment [CONS] Routine 04/06/17 14:51 PT Evaluation and Treatment [CONS] Routine 04/06/17 15:15 Warfarin Pharmacy to Dose [Pharmacy to Dose - Warfarin] 1 dose .XX ASDIRECTED 04/06/17 15:28 Dietary Supplements [RC] BIDMEALS 04/06/17 21:00 Latanoprost [Xalatan 0.005% Ophth Soln] 0 ml EYEBOTH BEDTIME Metoprolol Tartrate [Lopressor] 25 mg PO BID atorvaSTATin [Lipitor] 20 mg PO BEDTIME 04/07/17 06:00 Omeprazole 20 mg PO ACBRK 04/07/17 09:00 Amiodarone [Cordarone] 200 mg PO DAILY Aspirin 325 mg PO DAILY Digoxin [Lanoxin] 125 mcg PO DAILY 04/07/17 12:44 Lactulose [Cephulac] 20 gm PO Q4H PRN 04/07/17 12:45 Docusate Sodium/Sennosides [Senna Plus] 1 tab PO BID 04/07/17 12:49 Patient Status [ADT] Routine 04/07/17 14:00 Sodium Chloride 1 gm PO TID Warfarin [Coumadin] 1 mg PO ONETIME ONE 04/07/17 18:00 Potassium Chloride [Klor-Con 10] 20 meq PO TIDMEALS 04/08/17 05:15 BASIC METABOLIC PANEL,BMP [CHEM] AM CBC WITH AUTO DIFF [HEME] AM 04/08/17 06:00 INR,PT,PROTHROMBIN TIME [COAG] DAILY 04/09/17 06:00 INR,PT,PROTHROMBIN TIME [COAG] DAILY 04/10/17 06:00 INR,PT,PROTHROMBIN TIME [COAG] DAILY 04/11/17 06:00 INR,PT,PROTHROMBIN TIME [COAG] DAILY 04/12/17 06:00 INR,PT,PROTHROMBIN TIME [COAG] DAILY 04/13/17 06:00 INR,PT,PROTHROMBIN TIME [COAG] DAILY - Plan Plan:: Weakness Likely due to weight loss, possibly due to metastatic cancer Hold Lasix Will have physical and occupational therapy evaluation Hyponatremia worsened This 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 Garay The patient was set up to follow-up with Oncology Dr. Anaya, bone biopsy was discussed but the patient declined further evaluations. Pending PSA level We again discussed the potential diagnosis of cancer with the patient with his nephew present. He is unsure if he wants to pursue any further diagnosis or treatment Elevated TSH likely hypothyroidism Started Synthroid Atrial fibrillation Continue metoprolol, digoxin, amiodarone for rate control Anticoagulation for atrial fibrillation. Coumadin will be continued Hypertension Treat with metoprolol Coronary artery disease Treat with aspirin, metoprolol, Lipitor DVT prophylaxis with full dose anticoagulation with Coumadin
[2017-04-07] MEDS: Sodium Chloride 1 GM Tab PO SCH ×2 (14:09→22:14)
[2017-04-07] MEDS: Potassium Chloride 10 MEQ Tab.ER PO SCH (17:26)
[2017-04-07] MEDS: atorvaSTATin 20 MG Tab PO SCH (22:13)
[2017-04-07] MEDS: Latanoprost 0.005% Ophth Soln 2.5 ML Bottle EYEBOTH SCH (22:15)
[2017-04-08 06:53] LABS: ANION GAP 11.7; CHLORIDE,CL 100 mmol/L (101-111); SODIUM,NA 134 mmol/L (135-145)
[2017-04-08] MEDS: Omeprazole 20 MG Cap.CR PO SCH (07:19)
[2017-04-08] MEDS: Levothyroxine 25 MCG Tab PO SCH (07:19)
[2017-04-08] MEDS: Potassium Chloride 10 MEQ Tab.ER PO SCH ×2 (08:56→11:37)
[2017-04-08] MEDS: Aspirin 325 MG Tab PO SCH (08:56)
[2017-04-08] MEDS: Metoprolol Tartrate 25 MG Tab PO SCH ×2 (08:56→21:01)
[2017-04-08] MEDS: Sodium Chloride 1 GM Tab PO SCH ×3 (08:57→21:00)
[2017-04-08] MEDS: Digoxin 125 MCG Tab PO SCH (08:57)
[2017-04-08] MEDS: Amiodarone 200 MG Tab PO SCH (08:57)
--- NOTE | 2017-04-08 11:25 | PCM.PN ---
- General Info Date of Service: 04/08/17 Admission Dx/Problem (Free Text): Admission Diagnosis/Problem Admission Diagnosis/Problem Weakness, weight loss Subjective Update: Feeling stronger. Eating better. No complains of back pain. Still, has been walking very little with walker No cough, no shortness of breath, no chest pain, no fever or chills. Functional Status: Reports: Pain Controlled - Review of Systems General: Reports: Weakness. Denies: Fever Pulmonary: Denies: Shortness of Breath Cardiovascular: Denies: Chest Pain Gastrointestinal: Denies: Abdominal Pain Neurological: Denies: Confusion - Patient Data Vitals - Most Recent: Last Vital Signs Temp 36.5 C 04/08/17 07:55 Pulse 67 04/08/17 08:56 Resp 20 04/08/17 07:55 BP 101/51 L 04/08/17 08:56 Pulse Ox 96 04/08/17 07:55 Weight - Most Recent: 66.587 kg I&O - Last 24 Hours: Intake & Output 04/07/17 04/08/17 04/08/17 22:59 06:59 14:59 Intake Total 495 200 200 Output Total 150 250 100 Balance 345 -50 100 Lab Results Last 24 Hours: Laboratory Results - last 24 hr 04/08/17 04/08/17 04/08/17 Range/Units 06:19 06:19 06:19 WBC 8.5 (5.0-10.0) 10^3/uL RBC 3.37 L (4.6-6.2) 10^6/uL Hgb 9.9 L (14.0-18.0) g/dL Hct 30.9 L (40.0-54.0) % MCV 91.7 (80-100) fL MCH 29.4 (27.0-34.0) pg MCHC 32.0 L (33.0-35.0) g/dL Plt Count 268 (150-450) 10^3/uL Neut % (Auto) 67.7 (42.2-75.2) % Lymph % (Auto) 19.9 L (20.5-50.1) % [place] % (Auto) 12.1 H (2-8) % Eos % (Auto) 0.2 L (1.0-3.0) % Baso % (Auto) 0.1 (0.0-1.0) % Add Manual Diff PT 22.6 H (9.0-12.0) SEC INR 2.2 H (0.9-1.2) Sodium 134 L (135-145) mmol/L Potassium 3.7 (3.6-5.0) mmol/L Chloride 100 L (101-111) mmol/L Carbon Dioxide 26.0 (21.0-31.0) mmol/L Anion Gap 11.7 BUN 14 (7-18) mg/dL Creatinine 0.6 (0.6-1.3) mg/dL Est Cr Clr Drug Dosing 98.65 mL/min Estimated GFR (MDRD) > 60 Glucose 83 (74-105) mg/dL Calcium 7.9 L (8.4-10.2) mg/dl Med Orders - Current: Current Medications Acetaminophen (Tylenol) 650 mg PO Q4H PRN PRN Reason: Pain (Mild 1-3)/fever Amiodarone HCl (Cordarone) 200 mg PO DAILY [facility] Last Admin: 04/08/17 08:57 Dose: 200 mg Aspirin (Aspirin) 325 mg PO DAILY [facility] Last Admin: 04/08/17 08:56 Dose: 325 mg Atorvastatin Calcium (Lipitor) 20 mg PO BEDTIME [facility] Last Admin: 04/07/17 22:13 Dose: 20 mg Digoxin (Lanoxin) 125 mcg PO DAILY [facility] Last Admin: 04/08/17 08:57 Dose: 125 mcg Lactulose (Cephulac) 20 gm PO Q4H PRN PRN Reason: Constipation Latanoprost (Xalatan 0.005% Ophth Soln) 0 ml EYEBOTH BEDTIME [facility] Last Admin: 04/07/17 22:15 Dose: 1 drop Levothyroxine Sodium (Levothyroxine) 25 mcg PO ACBREAKFAST [facility] Last Admin: 04/08/17 07:19 Dose: 25 mcg Metoprolol Tartrate (Lopressor) 25 mg PO BID [facility] Last Admin: 04/08/17 08:56 Dose: 25 mg Omeprazole (Omeprazole) 20 mg PO ACBRK [facility] Last Admin: 04/08/17 07:19 Dose: 20 mg Potassium Chloride (Klor-Con 10) 20 meq PO TIDMEALS [facility] Stop: 04/08/17 12:01 Last Admin: 04/08/17 08:56 Dose: 20 meq Senna/Docusate Sodium (Senna Plus) 1 tab PO BID [facility] Last Admin: 04/08/17 08:56 Dose: 1 tab Sodium Chloride (Saline Flush) 10 ml FLUSH ASDIRECTED PRN PRN Reason: Keep Vein Open Last Admin: 04/06/17 10:15 Dose: 10 ml Sodium Chloride (Sodium Chloride) 1 gm PO TID [facility] Last Admin: 04/08/17 08:57 Dose: 1 gm Warfarin Sodium (Pharmacy To Dose - Warfarin) 1 dose .XX ASDIRECTED [facility] Warfarin Sodium (Coumadin) 1 mg PO DAILY@1400 [facility] Stop: 04/08/17 14:01 Zolpidem Tartrate (Ambien) 5 mg PO BEDTIME PRN PRN Reason: Sleep Discontinued Medications Sodium Chloride (Normal Saline) 1,000 mls @ 999 mls/hr IV .BOLUS ONE Stop: 04/06/17 11:46 Last Admin: 04/06/17 10:50 Dose: 999 mls/hr Iopamidol (Isovue-300 (61%)) 100 ml IVPUSH ONETIME ONE Stop: 04/06/17 12:44 Last Admin: 04/06/17 12:53 Dose: 100 ml Warfarin Sodium (Coumadin) 1 mg PO ONETIME ONE Stop: 04/06/17 15:31 Last Admin: 04/06/17 16:28 Dose: 1 mg Warfarin Sodium (Coumadin) 1 mg PO ONETIME ONE Stop: 04/07/17 14:01 Last Admin: 04/07/17 14:09 Dose: 1 mg - Exam General: Alert, Oriented Neck: Supple Lungs: Clear to Auscultation, Normal Respiratory Effort Cardiovascular: Regular Rate, Regular Rhythm GI/Abdominal Exam: Normal Bowel Sounds, Soft, Non-Tender Extremities: No Pedal Edema - Problem List & Annotations (1) Atrial fibrillation SNOMED Code(s): 93794551 Code(s): I48.91 - UNSPECIFIED ATRIAL FIBRILLATION Status: Acute Current Visit: Yes (2) Cachexia SNOMED Code(s): 997018923 Code(s): R64 - CACHEXIA Status: Acute Current Visit: Yes (3) Generalized weakness SNOMED Code(s): 87447948 Code(s): R53.1 - WEAKNESS Status: Acute Current Visit: Yes (4) Leukocytosis, unspecified SNOMED Code(s): 475139431 Code(s): D72.829 - ELEVATED WHITE BLOOD CELL COUNT, UNSPECIFIED Status: Acute Current Visit: Yes Qualifiers: Leukocytosis type: unspecified Qualified Code(s): D72.829 - Elevated white blood cell count, unspecified (5) Anticoagulant therapy SNOMED Code(s): 779901514 Code(s): Z79.01 - 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 Status: Acute Current Visit: No (6) HTN, Essential hypertension SNOMED Code(s): 50681829 Code(s): I10 - ESSENTIAL (PRIMARY) HYPERTENSION Status: Chronic Current Visit: No (7) Hyponatremia SNOMED Code(s): 60836186 Code(s): E87.1 - HYPO-OSMOLALITY AND HYPONATREMIA Status: Acute Current Visit: Yes - Problem List Review Problem List Initiated/Reviewed/Updated: Yes - My Orders Last 24 Hours: My Active Orders 04/08/17 14:00 Warfarin [Coumadin] 1 mg PO DAILY@1400 - Plan Plan:: Weakness Likely due to weight loss, possibly due to metastatic cancer Hold Lasix Will have physical and occupational therapy evaluation Hyponatremia Improved This 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 Garay The patient was set up to follow-up with Oncology Dr. Anaya, bone biopsy was discussed but the patient declined further evaluations. Pending PSA level We discussed the potential diagnosis of cancer with the patient with his nephew present. He is unsure if he wants to pursue any further diagnosis or treatment Elevated TSH likely hypothyroidism Started Synthroid Atrial fibrillation Continue metoprolol, digoxin, amiodarone for rate control Anticoagulation for atrial fibrillation. Coumadin will be continued Hypertension Treat with metoprolol Coronary artery disease Treat with aspirin, metoprolol, Lipitor DVT prophylaxis with full dose anticoagulation with Coumadin
[2017-04-08] MEDS: atorvaSTATin 20 MG Tab PO SCH (21:00)
[2017-04-08] MEDS: Latanoprost 0.005% Ophth Soln 2.5 ML Bottle EYEBOTH SCH (21:12)
[2017-04-09] MEDS: Levothyroxine 25 MCG Tab PO SCH (05:47)
[2017-04-09] MEDS: Omeprazole 20 MG Cap.CR PO SCH (05:48)
[2017-04-09 08:06] LABS: ANION GAP 10.5; CHLORIDE,CL 101 mmol/L (101-111); SODIUM,NA 133 mmol/L (135-145)
[2017-04-09] MEDS: Amiodarone 200 MG Tab PO SCH (09:16)
[2017-04-09] MEDS: Metoprolol Tartrate 25 MG Tab PO SCH (09:16)
[2017-04-09] MEDS: Sodium Chloride 1 GM Tab PO SCH ×2 (09:16→13:58)
[2017-04-09] MEDS: Digoxin 125 MCG Tab PO SCH (09:16)
[2017-04-09] MEDS: Aspirin 325 MG Tab PO SCH (09:17)
[2017-04-09 11:23] VITALS: BP 114/62
--- NOTE | 2017-04-10 04:11 | DISCH ---
ADMITTING DIAGNOSES: 1. Generalized weakness with debility. 2. Hyponatremia. 3. Elevated TSH level with hypothyroidism. 4. Osteoblastic-appearing thoracic and lumbar vertebral body, suspicion for malignancy. DISCHARGE DIAGNOSES: 1. Generalized weakness with debility, improved with physical therapy and occupational therapy. 2. Hyponatremia, improved with sodium chloride tablets. Possible syndrome of inappropriate antidiuretic hormone, hold the Lasix. 3. Elevated TSH levels. Start him on levothyroxine. HISTORY OF PRESENTING ILLNESS: Mr. Ranulfo Moran is a 76-year-old male with a medical history significant for hypertension, hyperlipidemia, atrial fibrillation, on chronic anticoagulation, who was admitted to the hospital with complaints of increasing weakness, tiredness, and generalized debility. 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 The patient was also made an appointment to follow with Dr. Anaya with Oncology for possible bone biopsy, but the patient deferred to have any further investigational studies for his underlying possible cancer. The patient was treated with IV fluids on this admission. He was noted to have hyponatremia with sodium down to 128. He was started on sodium chloride tablets after which his sodium chloride improved. He was also noted to have hypokalemia requiring potassium chloride supplement. The patient's generalized weakness has improved with IV fluids. The patient was evaluated by Physical Therapy and Occupational Therapy. He was able to ambulate well with the help of the walker. The patient remained hemodynamically stable on this admission. He is discharged home in stable condition. He is advised to follow with his primary care physician in the next 1 week of time to further discuss about the osteoblastic lesions and further cares. He is discharged to home in stable condition. He is advised to follow with his primary care physician in the next 1 week of time. DISCHARGE MEDICATIONS: Include: 1. Amiodarone 200 mg daily. 2. Aspirin 325 mg daily. 3. Digoxin 125 mcg daily. 4. Xalatan ophthalmic at bedtime. 5. Levothyroxine 25 mcg daily. 6. Metoprolol 25 mg twice a day. 7. Omeprazole 20 mg daily. 8. Potassium chloride 20 mEq daily. 9. Sodium chloride tablets 3 times a day for next 1 week. 10.Coumadin 2 mg as directed. 11.Lipitor 20 mg at bedtime. 12.The patient is advised to hold his Lasix secondary to hyponatremia and resume it once he is more stable. PHYSICAL EXAMINATION: Vital Signs: On the day of discharge vitals; temperature of 98.2, pulse of 60, blood pressure 108/59, respiratory rate of 20, saturating at 97% on room air. General Appearance: The patient is well oriented to time, place, and person. Follows commands spontaneously. Cardiovascular: S1, S2 heard with normal intensity. No gallops. Respiratory: Clear to auscultation bilaterally. No wheeze. No crepitations. Abdomen: Soft. Bowel sounds positive. Nontender. No rigidity. Extremities: No edema of bilateral lower extremities. Neurology: No gross focal neurological deficits. CONDITION ON ADMISSION: Poor. CONDITION ON DISCHARGE: Stable. ACTIVITY: As tolerated. Use a walker while ambulating to prevent any falls. DIET: Cardiac healthy diet. FOLLOWUP: Follow with primary care physician in the next 1 week of time. CONDITION ON DISCHARGE: Stable. I spent over 35 minutes of time in evaluating and treating this patient and making discharge plans. [facility] /[id number]
== END 2017-04-09 14:10 | disposition home or self-care (01) | DRG 948 ==
LOC: DL.ED 09:37 → UNDOADMOB 13:37 → DL.MS 13:37 → OBSVTOIN 04-07 12:49
PROVIDERS: ADMIT Internal Medicine; ATTEND Internal Medicine
DX: R53.1 Weakness (principal); E22.2 Syndrome of inappropriate secretion of antidiuretic hormone; R64 Cachexia; C79.51 Secondary malignant neoplasm of bone; J90 Pleural effusion, not elsewhere classified; E07.9 Disorder of thyroid, unspecified; E86.0 Dehydration; E78.5 Hyperlipidemia, unspecified; I48.91 Unspecified atrial fibrillation; Z79.01 Long term (current) use of anticoagulants; Z87.891 Personal history of nicotine dependence; D72.829 Elevated white blood cell count, unspecified; I10 Essential (primary) hypertension; I25.10 Atherosclerotic heart disease of native coronary artery without angina pectoris
CPT/HCPCS: 36415 ×2; 71260; 74177; 80048; 80053; 80162; 81001; 82150; 83615; 83690; 83735; 84443; 85025 ×2; 85610 ×2; 96360; 96361; 99285; A9270 ×9; G0103; J7030; J7050; Q9967 ×2; 97162-GP; 97165-GO; 97530-GO; G0378